=== PATIENT | male | born 1950 | race Caucasian/White ===

== ENCOUNTER 2020-12-24 11:44 | Day surgery (SDC) | payer MEDICARE, SELFPAY ==
[2020-12-04 10:42] VITALS: BMI 32.2
--- NOTE | 2020-12-21 08:17 | P.CONAN_ITS ---
Documented by User: Eveline Alexandre 12/21/20 08:18 HPI - Anesthesia Eval Consult details Narrative: 70yo M for Colonoscopy with Antibiotics [facility] Past Medical History Medical History Asthma Atrial septal defect Fatty liver HTN (hypertension) Hx of cancer of lung TIA (transient ischemic attack) Surgical History Surgical History H/O colonoscopy History of lobectomy of lung Hx of cataract extraction Hx of knee surgery Social History Social History Patient Tobacco Use Status: Former Tobacco user Quit Date: ~2009 Tobacco use type: Cigarette Advance Directives Information Provided: No Meds Allergies Allergy/AdvReac Type Severity Reaction Status Date / Time clopidogrel [From PLAVIX] Allergy Severe FLU LIKE Verified 12/24/20 13:17 SYMPTOMS,MUSCLE RIGIDITY fentanyl [FENTANYL] Allergy Severe BRONCHOSPAS Verified 12/24/20 13:17 M Home Medications Medication Instructions Recorded Confirmed Last Taken Type albuterol sulfate [Ventolin HFA] 2 puff INHALATION Q4-6H PRN 12/04/20 12/04/20 Unknown History amlodipine 10 mg PO DAILY 12/04/20 12/04/20 12/24/20 07:00 History aspirin [Aspirin Low Dose] 81 mg PO DAILY 12/04/20 12/04/20 Unknown History budesonide [Pulmicort Flexhaler] 1 inh INHALATION BID 12/04/20 12/04/20 Unknown History cetirizine [Zyrtec] 10 mg PO DAILY 12/04/20 12/04/20 Unknown History lisinopril 10 mg PO DAILY 12/04/20 12/04/20 12/24/20 07:00 History tadalafil 5 mg PO DAILY PRN 12/04/20 12/04/20 Unknown History tamsulosin 0.4 mg PO BEDTIME 12/04/20 12/04/20 Unknown History Exam Exam Date and Time: December 21, 2020 0817 Height,Weight and Vital Signs: Height 5 ft 10.5 in Weight 103.419 kg Assessment and Plan Assessment Anesthesia Assessment: Chart Reviewed Documented by User: Jacinda Oropeza 12/24/20 15:38 PMFSH Past Medical History Medical History Asthma Atrial septal defect Fatty liver HTN (hypertension) Hx of cancer of lung TIA (transient ischemic attack) Surgical History Surgical History H/O colonoscopy History of lobectomy of lung Hx of cataract extraction Hx of knee surgery Social History Social History Patient Tobacco Use Status: Former Tobacco user Quit Date: ~2009 Tobacco use type: Cigarette Advance Directives Information Provided: No Meds Allergies Allergy/AdvReac Type Severity Reaction Status Date / Time clopidogrel [From PLAVIX] Allergy Severe FLU LIKE Verified 12/24/20 13:17 SYMPTOMS,MUSCLE RIGIDITY fentanyl [FENTANYL] Allergy Severe BRONCHOSPAS Verified 12/24/20 13:17 M Home Medications Medication Instructions Recorded Confirmed Last Taken Type albuterol sulfate [Ventolin HFA] 2 puff INHALATION Q4-6H PRN 12/04/20 12/04/20 Unknown History amlodipine 10 mg PO DAILY 12/04/20 12/04/20 12/24/20 07:00 History aspirin [Aspirin Low Dose] 81 mg PO DAILY 12/04/20 12/04/20 Unknown History budesonide [Pulmicort Flexhaler] 1 inh INHALATION BID 12/04/20 12/04/20 Unknown History cetirizine [Zyrtec] 10 mg PO DAILY 12/04/20 12/04/20 Unknown History lisinopril 10 mg PO DAILY 12/04/20 12/04/20 12/24/20 07:00 History tadalafil 5 mg PO DAILY PRN 12/04/20 12/04/20 Unknown History tamsulosin 0.4 mg PO BEDTIME 12/04/20 12/04/20 Unknown History Exam Airway Mallampati Class: III TM Dist: >3cm Partial: Upper Heart: RRR Lungs: CTA Assessment and Plan Assessment Anesthesia Assessment: Anesthesia Plan Discussed and Chart Reviewed Final Anesthetic Review NPO: Yes ASA Class: III Final Preanesthetic Review: Meds/Allgs Chart Reviewed, Consent Obtained/Reviewed and Anes Risks/Benef Reviewed Patient Risk: Intermediate Procedure Risk: Low Anesthetic Plan Anesthetic Plan: MAC: Disposition: Standard PACU
[2020-12-24] MEDS: Lactated Ringers 1,000 ML 100 ML IVCONT (13:35)
[2020-12-24] MEDS: Ampicillin Sodium 2 GM in 0.9 % Sodium Chloride 100 ML IV (13:36)
[2020-12-24] MEDS: Gentamicin Sulfate/NaCl 80 MG/100 ML PIGGYBACK 100 MG IV (13:51)
--- NOTE | 2020-12-24 14:56 | ECG_ITS ---
Test Reason : RHYTHEM CHANGES Blood Pressure : / mmHG Vent. Rate : 050 BPM Atrial Rate : 050 BPM P-R Int : 340 ms QRS Dur : 186 ms QT Int : 522 ms P-R-T Axes : 024 038 036 degrees QTc Int : 475 ms Sinus bradycardia with 1st degree A-V block Left bundle branch block Abnormal ECG When compared with ECG of 13-APR-2009 21:19, Nonspecific T wave abnormality now evident in Inferior leads Referred By: Jacinda Oropeza Electronically Signed By:Asa Lopez
--- NOTE | 2020-12-24 15:00 | PC.NURSE ---
patients heart rate drops to 43 occasionally at times. denies sob, chest pain, dizziness, color wnl, nondiaphoretic. ekg to be performed called.
[2020-12-24 15:55] VITALS: BP 88/61; PULSE 62; RESP 18; TEMP 36.7; O2SAT 97
[2020-12-24 16:00] VITALS: BP 96/67; PULSE 56; RESP 16; O2SAT 95
--- NOTE | 2020-12-24 16:02 | PM.OP ---
Brief Operative Note Date of Service: 12/24/20 Pre-op diagnosis: Screening Post-op diagnosis: other (Colon polyp) Procedure: Colonoscopy to the cecum and TI with snare polypectomy and placement a of 1 Resolution clip on the polypectomy site at 40cm Surgeon: Socrates Barcenas Anesthesia: MAC Was an Robotic Welding Operator used for this Procedure?: No Estimated blood loss (mL): 0 Pathology: other (A. Polyp at 40cm) Condition: stable Disposition: PACU
[2020-12-24 16:10] VITALS: BP 108/55; PULSE 55; RESP 18; O2SAT 98
[2020-12-24 16:15] VITALS: BP 125/70; PULSE 47; RESP 18; O2SAT 99
[2020-12-24 16:30] VITALS: BP 127/67; PULSE 51; RESP 16; O2SAT 99
--- NOTE | 2020-12-24 21:12 | OP_ITS ---
SURGEON: Socrates Barcenas MD PREOPERATIVE DIAGNOSIS: POSTOPERATIVE DIAGNOSIS: PROCEDURE PERFORMED: Colonoscopy to the cecum and TI with snare polypectomy and placement of 1 resolution clip. Full consent has been obtained from for this, including risks of bleeding and perforation ESTIMATED BLOOD LOSS: COMPLICATIONS: ANESTHESIA: Monitored anesthesia care. ASSISTANTS: SPECIMENS: PREOPERATIVE DIAGNOSES: Colorectal cancer screening, family history of colon cancer, personal history of tubular adenoma of the colon. POSTOPERATIVE DIAGNOSES: Colorectal cancer screening, family history of colon cancer, personal history of tubular adenoma of the colon, colon polyp, diverticulosis and internal hemorrhoids. DESCRIPTION OF PROCEDURE: The patient was placed in the left lateral decubitus position. The digital rectal exam revealed no abnormalities. The Olympus video pediatric colonoscope was entered into the rectum and advanced easily to the cecum. Once in the cecum, I did identify normal-appearing cecal pouch with appendiceal orifice and a normal-appearing ileocecal valve. The terminal ileum was cannulated and appeared normal. The scope was withdrawn back in the colon. The entire cecum and ileocecal valve appeared normal. The scope was slowly withdrawn assessing all mucosal surfaces carefully. Preparation was excellent. The previously placed submucosal ink markings were noted in the transverse colon. I did not see any sign of residual polyp tissue in that area. At 40 cm, was a flat, but slightly raised approximately 8 mm polyp, which was snared and recovered by suction. A single resolution clip was placed as he does have to go back on his aspirin. There was good deployment and good hemostasis. There was no sign of any residual polyp. I did not visualize any other polyps, colitis, nor angiodysplasia. There was a mild amount of sigmoid diverticulosis. In the rectum, scope was retroflexed visualizing small internal hemorrhoids, but no other pathology. The rectal mucosa appeared normal. The scope was straightened out and withdrawn from the patient. He tolerated the procedure well and was returned to the recovery area in stable condition. IMPRESSION: 1. Colon polyp, status post snare polypectomy. 2. Diverticulosis. 3. Internal hemorrhoids. PLAN: The results of the pathology will be checked. I would recommend a repeat colonoscopy within 2 to 3 years for further surveillance given his family history and personal history of colon polyps. He was advised to resume his aspirin tomorrow. He did receive preprocedure antibiotics and was given a prescription for amoxicillin in regard to his underlying history of atrial septal defect. Socrates Barcenas MD RMW/JIM / [id number] MTDAntolin
== END 2020-12-24 17:17 | disposition home or self-care (01) ==
PROVIDERS: PCP Internal Medicine; Visit Provider Internal Medicine
PROC: 0DJD8ZZ Inspection of Lower Intestinal Tract, Via Natural or Artificial Opening Endoscopic (ICD-10-PCS; CPT 45378; principal; 2020-12-24 13:20)
DX: Z12.11 Encounter for screening for malignant neoplasm of colon (principal); Z86.010 Personal history of colon polyps; Z80.0 Family history of malignant neoplasm of digestive organs; K63.5 Polyp of colon; K57.30 Diverticulosis of large intestine without perforation or abscess without bleeding; K64.8 Other hemorrhoids; J45.909 Unspecified asthma, uncomplicated; I10 Essential (primary) hypertension; H54.7 Unspecified visual loss; I69.898 Other sequelae of other cerebrovascular disease; Z79.82 Long term (current) use of aspirin; Z79.899 Other long term (current) drug therapy; Z85.118 Personal history of other malignant neoplasm of bronchus and lung; Z87.891 Personal history of nicotine dependence
CPT/HCPCS: 45385; 88305; 93005; J0290; J1580

== ENCOUNTER 2023-03-16 11:41 | Day surgery (SDC) | payer MEDICARE, SELFPAY ==
--- NOTE | 2023-03-13 14:51 | HO.ANESPROP2 ---
Documented by User: Eveline Alexandre NP 03/13/23 14:52 HPI - Anesthesia Eval Consult details Narrative: 73yo M for Colonoscopy ASD s/p repair 2008 [facility] Past Medical History Medical History Hx of cancer of lung Atrial septal defect Fatty liver TIA (transient ischemic attack) Asthma HTN (hypertension) Surgical History Surgical History H/O colonoscopy Hx of knee surgery Hx of cataract extraction History of lobectomy of lung Social History Social History Patient Tobacco Use Status: Former Tobacco user Quit Date: ~2009 Tobacco use type: Cigarette Meds Allergies Allergy/AdvReac Type Severity Reaction Status Date / Time clopidogrel [From PLAVIX] Allergy Severe FLU LIKE Verified 12/24/20 13:17 SYMPTOMS,MUSCLE RIGIDITY fentanyl [FENTANYL] Allergy Severe BRONCHOSPAS Verified 12/24/20 13:17 M Home Medications Medication Instructions Recorded Confirmed Last Taken Type albuterol sulfate 90 mcg/actuation 2 puff inhalation Q4-6H PRN 12/04/20 12/04/20 Unknown History aerosol inhaler (Ventolin HFA) Wheezing amlodipine 10 mg tablet 10 mg PO DAILY 12/04/20 12/04/20 12/24/20 07:00 History aspirin 81 mg tablet,delayed 81 mg PO DAILY 12/04/20 12/04/20 Unknown History release (Jeanette Low Dose Aspirin) budesonide 180 mcg/actuation 1 inh inhalation BID 12/04/20 12/04/20 Unknown History breath activated powder inhaler (Pulmicort Flexhaler) cetirizine 10 mg tablet (Zyrtec) 10 mg PO DAILY 12/04/20 12/04/20 Unknown History lisinopril 10 mg tablet 10 mg PO DAILY 12/04/20 12/04/20 12/24/20 07:00 History tadalafil 5 mg tablet 5 mg PO DAILY PRN Erectile 12/04/20 12/04/20 Unknown History Dysfunction tamsulosin 0.4 mg capsule 0.4 mg PO BEDTIME 12/04/20 12/04/20 Unknown History atorvastatin 40 mg tablet 40 mg PO DAILY 03/13/23 03/13/23 Unknown History montelukast 10 mg tablet 10 mg PO DAILY 03/13/23 03/13/23 Unknown History Exam Exam Date and Time: March 13, 2023 1451 Assessment and Plan Assessment Anesthesia Assessment: Chart Reviewed Documented by User: Tatiana Armstrong MD 03/16/23 14:00 PMFSH Active Problems Active Problems: HTN Asthma Denies YOSEF LBBB Bradycardia Past Medical History Medical History Hx of cancer of lung Atrial septal defect Fatty liver TIA (transient ischemic attack) Asthma HTN (hypertension) Family History Family history of problems with anesthesia: No Surgical History Surgical History H/O colonoscopy Hx of knee surgery Hx of cataract extraction History of lobectomy of lung History of Problems with Anesthesia: No Social History Social History Patient Tobacco Use Status: Former Tobacco user Quit Date: ~2009 Tobacco use type: Cigarette Meds Allergies Allergy/AdvReac Type Severity Reaction Status Date / Time clopidogrel [From PLAVIX] Allergy Severe FLU LIKE Verified 12/24/20 13:17 SYMPTOMS,MUSCLE RIGIDITY fentanyl [FENTANYL] Allergy Severe BRONCHOSPAS Verified 12/24/20 13:17 M Home Medications Medication Instructions Recorded Confirmed Last Taken Type albuterol sulfate 90 mcg/actuation 2 puff inhalation Q4-6H PRN 12/04/20 12/04/20 Unknown History aerosol inhaler (Ventolin HFA) Wheezing amlodipine 10 mg tablet 10 mg PO DAILY 12/04/20 12/04/20 12/24/20 07:00 History aspirin 81 mg tablet,delayed 81 mg PO DAILY 12/04/20 12/04/20 Unknown History release (Jeanette Low Dose Aspirin) budesonide 180 mcg/actuation 1 inh inhalation BID 12/04/20 12/04/20 Unknown History breath activated powder inhaler (Pulmicort Flexhaler) cetirizine 10 mg tablet (Zyrtec) 10 mg PO DAILY 12/04/20 12/04/20 Unknown History lisinopril 10 mg tablet 10 mg PO DAILY 12/04/20 12/04/20 12/24/20 07:00 History tadalafil 5 mg tablet 5 mg PO DAILY PRN Erectile 12/04/20 12/04/20 Unknown History Dysfunction tamsulosin 0.4 mg capsule 0.4 mg PO BEDTIME 12/04/20 12/04/20 Unknown History atorvastatin 40 mg tablet 40 mg PO DAILY 03/13/23 03/13/23 Unknown History montelukast 10 mg tablet 10 mg PO DAILY 03/13/23 03/13/23 Unknown History Exam Height,Weight and Vital Signs: Height 5 ft 10 in Weight 78.925 kg Vital Signs Temp Pulse Resp BP Pulse Ox O2 Del Method 03/16/23 13:05 96.9 F 53 18 142/61 H 98 Room Air Airway Mallampati Class: III TM Dist: >3cm (Small chin) Neck ROM: Full (Ok extension but gets neck spasms) Loose/Missing/Broken Teeth: No (Permanent bridge top. Some missing teeth. Denies broken or loose teeth) Heart: RRR + murmur Lungs: CTAB Assessment and Plan Assessment Anesthesia Assessment: Anesthesia Plan Discussed Final Anesthetic Review Family History of Problems with Anesthesia: No History of Problems with Anesthesia: No NPO: Yes ASA Class: III Final Preanesthetic Review: No Changes in Pt Med Stat, Meds/Allgs Chart Reviewed, Consent Obtained/Reviewed and Anes Risks/Benef Reviewed Patient Risk: Intermediate Procedure Risk: Low Assessment/Block/Sedation in SS: Assess/Block/Sedation-SS Anesthetic Plan Anesthetic Plan: MAC: Disposition: Standard PACU
[2023-03-16] VITALS (8 sets, daily range): BP systolic 119–142; BP diastolic 51–64; PULSE 37–64; RESP 16–18; TEMP 36.1–36.6; O2SAT 98–99; BMI 25.0
--- NOTE | 2023-03-16 | ECG_ITS ---
Test Reason : bradycardia, preop Blood Pressure : / mmHG Vent. Rate : 043 BPM Atrial Rate : 043 BPM P-R Int : 260 ms QRS Dur : 182 ms QT Int : 524 ms P-R-T Axes : 025 -24 025 degrees QTc Int : 442 ms Marked sinus bradycardia with 1st degree A-V block with with sinus arrest or transient A-V block Left bundle branch block Abnormal ECG When compared with ECG of 24-DEC-2020 15:02, Sinus bradycardia with sinus arrest or transient A-V block is now Present Referred By: Tatiana Armstrong Electronically Signed By:PHILIPPE TRUJILLO
[2023-03-16] MEDS: Lactated Ringers 1,000 ML 100 ML IVCONT (13:13)
--- NOTE | 2023-03-16 15:09 | PM.OP ---
Brief Operative Note Date of Service: 03/16/23 Pre-op diagnosis: Screening Post-op diagnosis: other (Colon Polyp) Procedure: Colonoscopy to the cecum with hot snare polypectomy x 1 with placement of 2 Resolution clips Surgeon: Socrates Barcenas Anesthesia: MAC Was an Loss Prevention Operations Manager used for this Procedure?: No Estimated blood loss (mL): 2.0 Pathology: other (A. Transverse colon polyp) Condition: stable Disposition: PACU
--- NOTE | 2023-03-16 17:20 | PC.NURSE ---
anesthesia dr. angelia thomas to md cardiology consult with dr. quintero regarding patient bradycardia. dr. quintero cleared to discharge to home with follow-up PCP tomorrow. Family updated patient status.
--- NOTE | 2023-03-16 21:18 | OP_ITS ---
DATE OF SERVICE: 03/16/2023 SURGEON: Socrates Barcenas MD INDICATIONS: The patient presents for evaluation of colorectal cancer screening and personal history of tubular adenomas of the colon. Full consent has been obtained from him for this, including risks of bleeding and perforation. PREOPERATIVE DIAGNOSIS: Colorectal cancer screening and personal history of tubular adenomas of the colon. POSTOPERATIVE DIAGNOSIS: PROCEDURE PERFORMED: Colonoscopy to the cecum with hot snare polypectomy and placement of 2 resolution clips. ESTIMATED BLOOD LOSS: COMPLICATIONS: ANESTHESIA: Monitored anesthesia care. ASSISTANTS: SPECIMENS: POSTOPERATIVE DIAGNOSES: Colorectal cancer screening and personal history of tubular adenomas of the colon, colon polyp, diverticulosis, internal hemorrhoids. DESCRIPTION OF PROCEDURE: The patient was placed in the left lateral decubitus position. The digital rectal exam revealed no abnormalities. The Olympus video pediatric colonoscope was entered into the rectum and advanced easily to the cecum. Once in the cecum, I did identify normal-appearing cecal pouch with appendiceal orifice and a normal-appearing ileocecal valve. The entire cecum and ileocecal valve appeared normal. The scope was then slowly withdrawn assessing all mucosal surfaces carefully. Preparation was excellent. In the region of the transverse colon were previously placed submucosal ink parrish. In that area along a fold was an approximately 10 mm grossly adenomatous polypoid lesion. I did not visualize any other polyp tissue in that area. The polypoid lesion was removed with a hot snare polypectomy and recovered by suction. A portion of this was also cauterized with the tip of the snare. I then placed 2 resolution clips onto the polypectomy site with good deployment and good hemostasis. I did not visualize any other polyps, colitis, nor angiodysplasia. There was a mild amount of sigmoid diverticulosis. In the rectum, the scope was retroflexed visualizing internal hemorrhoids, but no other pathology. The rectal mucosa appeared normal. The scope was straightened and withdrawn from the patient. He tolerated the procedure well and was returned to the recovery area in stable condition. IMPRESSION: 1. Colon polyp. 2. Diverticulosis. 3. Internal hemorrhoids. PLAN: The results of the pathology will be checked. I would recommend a repeat colonoscopy within 2-3 years for further screening and surveillance given today's findings and his previous history. He was advised to resume his aspirin in 48 hours. MD JAYASHREE Velazquez/JIM / [id number] MTDD
== END 2023-03-16 17:39 | disposition home or self-care (01) ==
PROVIDERS: PCP Internal Medicine; Visit Provider Internal Medicine
PROC: 0DJD8ZZ Inspection of Lower Intestinal Tract, Via Natural or Artificial Opening Endoscopic (ICD-10-PCS; CPT 45378; principal; 2023-03-16 13:00)
DX: Z12.11 Encounter for screening for malignant neoplasm of colon (principal); Z86.010 Personal history of colon polyps; Z80.0 Family history of malignant neoplasm of digestive organs; D12.3 Benign neoplasm of transverse colon; K57.30 Diverticulosis of large intestine without perforation or abscess without bleeding; K64.8 Other hemorrhoids; K76.0 Fatty (change of) liver, not elsewhere classified; I10 Essential (primary) hypertension; J45.909 Unspecified asthma, uncomplicated; Z79.82 Long term (current) use of aspirin; Z79.899 Other long term (current) drug therapy; Z86.73 Personal history of transient ischemic attack (TIA), and cerebral infarction without residual deficits; Z85.118 Personal history of other malignant neoplasm of bronchus and lung; Z87.891 Personal history of nicotine dependence; Z98.890 Other specified postprocedural states; Z88.8 Allergy status to other drugs, medicaments and biological substances
CPT/HCPCS: 45385; 88305; 93005

== ENCOUNTER 2025-05-24 09:11 | Day surgery (SDC) | payer MEDICARE, SELFPAY ==
--- NOTE | 2025-05-22 10:43 | HO.ANESPROP2 ---
Documented by User: Eveline Alexandre NP 05/22/25 10:49 HPI - Anesthesia Eval Consult details Narrative: 75yo M for Colonoscopy Lung ca s/p TEX-ectomy 2019 ASD s/p repair 2008 [facility] Past Medical History Medical History LBBB (left bundle branch block) Wears partial dentures Arthritis HLD (hyperlipidemia) YOSEF on CPAP Hx of cancer of lung (09/15/19) BPH (benign prostatic hyperplasia) CAD (coronary artery disease) Atrial septal defect Fatty liver TIA (transient ischemic attack) Asthma HTN (hypertension) Family History Family history of problems with anesthesia: No Surgical History Surgical History History of tonsillectomy History of liver biopsy (2001) Hx of cardiac catheterization (2008) H/O colonoscopy (03/2023) Hx of knee surgery Hx of cataract extraction History of lobectomy of lung History of Problems with Anesthesia: No Social History Social History Are you a primary neonatal intensive care nurse to a significant other at home: No Do you presently have visiting nurse or other home services: No Patient Tobacco Use Status: Former Tobacco user Tobacco use type: Cigarette Use of substances other than those prescribed or required for medical reasons: Yes Substance Use Frequency: Occasionally Have you been hit, kicked, punched, or otherwise hurt by someone within the past year? If so, by whom?: No Are you DNR?: No Advance Directives: No (will look for and bring dos) Advance Directives Information Provided: Yes Advance Directives on File: No Meds Allergies Allergy/AdvReac Type Severity Reaction Status Date / Time bee pollen (bee stings) Allergy Severe Swelling Verified 05/22/25 11:33 clopidogrel (From PLAVIX) Allergy Severe FLU LIKE Verified 05/22/25 11:33 SYMPTOMS,MUSCLE RIGIDITY fentanyl (FENTANYL) Allergy Severe BRONCHOSPASM Verified 05/22/25 12:13 2008 Home Medications ?Medication ?Instructions ?Recorded ?Confirmed ?Last Taken ?Type albuterol sulfate 90 mcg/actuation 2 puff inhalation Q4-6H PRN 12/04/20 05/22/25 05/24/25 History aerosol inhaler (Ventolin HFA) Wheezing amlodipine 10 mg tablet 10 mg PO DAILY 12/04/20 05/22/25 05/24/25 History aspirin 81 mg tablet,delayed 81 mg PO DAILY 12/04/20 05/22/25 05/21/25 History release (Jeanette Low Dose Aspirin) budesonide 180 mcg/actuation 1 inh inhalation BID 12/04/20 05/22/25 05/24/25 History breath activated powder inhaler (Pulmicort Flexhaler) cetirizine 10 mg tablet (Zyrtec) 10 mg PO DAILY 12/04/20 05/22/25 05/24/25 History lisinopril 10 mg tablet 10 mg PO DAILY 12/04/20 05/22/25 12/24/20 07:00 History tadalafil 5 mg tablet 5 mg PO DAILY PRN Erectile 12/04/20 05/22/25 Unknown History Dysfunction tamsulosin 0.4 mg capsule 0.4 mg PO BEDTIME 12/04/20 05/22/25 Unknown History atorvastatin 40 mg tablet 40 mg PO DAILY 03/13/23 05/22/25 Unknown History montelukast 10 mg tablet 10 mg PO DAILY 03/13/23 05/22/25 Unknown History epinephrine 0.3 mg/0.3 mL PRN Allergic Reaction 05/22/25 05/22/25 Unknown History injection, auto-injector Exam Narrative Narrative: Chest CT 05/2025 IMPRESSION: 1. Low lung volume with dependent atelectasis. Otherwise no acute abnormality within the chest. 2. No evidence of recurrence or metastatic disease in the chest. 3. Unchanged 4 mm nodules in the right lower lobe. If low risk for malignancy, no routine follow-up. If high risk, optional CT at 12 months. If unchanged, no further follow-up needed per Guidelines for Management of Incidental Pulmonary Nodules Detected on CT Images: From the Fleischner Society 2017. 4. Unchanged prominent but nonenlarged prevascular mediastinal nodes. 5. Dilated main pulmonary artery, consistent with pulmonary hypertension. 6. Cardiomegaly and stable small pericardial effusion. Assessment and Plan Assessment Anesthesia Assessment: Chart Reviewed Final Anesthetic Review Family History of Problems with Anesthesia: No History of Problems with Anesthesia: No Documented by User: Dejon Sims MD 05/24/25 11:12 [facility] Past Medical History Medical History LBBB (left bundle branch block) Wears partial dentures Arthritis HLD (hyperlipidemia) YOSEF on CPAP Hx of cancer of lung (09/15/19) BPH (benign prostatic hyperplasia) CAD (coronary artery disease) Atrial septal defect Fatty liver TIA (transient ischemic attack) Asthma HTN (hypertension) Functional capacity: independent ambulation Surgical History Surgical History History of tonsillectomy History of liver biopsy (2001) Hx of cardiac catheterization (2008) H/O colonoscopy (03/2023) Hx of knee surgery Hx of cataract extraction History of lobectomy of lung Social History Social History Are you a primary neonatal intensive care nurse to a significant other at home: No Do you presently have visiting nurse or other home services: No Patient Tobacco Use Status: Former Tobacco user Tobacco use type: Cigarette Use of substances other than those prescribed or required for medical reasons: Yes Substance Use Frequency: Occasionally Have you been hit, kicked, punched, or otherwise hurt by someone within the past year? If so, by whom?: No Are you DNR?: No Advance Directives: No (will look for and bring dos) Advance Directives Information Provided: Yes Advance Directives on File: No Meds Allergies Allergy/AdvReac Type Severity Reaction Status Date / Time bee pollen (bee stings) Allergy Severe Swelling Verified 05/22/25 11:33 clopidogrel (From PLAVIX) Allergy Severe FLU LIKE Verified 05/22/25 11:33 SYMPTOMS,MUSCLE RIGIDITY fentanyl (FENTANYL) Allergy Severe BRONCHOSPASM Verified 05/22/25 12:13 2008 Home Medications ?Medication ?Instructions ?Recorded ?Confirmed ?Last Taken ?Type albuterol sulfate 90 mcg/actuation 2 puff inhalation Q4-6H PRN 12/04/20 05/22/25 05/24/25 History aerosol inhaler (Ventolin HFA) Wheezing amlodipine 10 mg tablet 10 mg PO DAILY 12/04/20 05/22/25 05/24/25 History aspirin 81 mg tablet,delayed 81 mg PO DAILY 12/04/20 05/22/25 05/21/25 History release (Jeanette Low Dose Aspirin) budesonide 180 mcg/actuation 1 inh inhalation BID 12/04/20 05/22/25 05/24/25 History breath activated powder inhaler (Pulmicort Flexhaler) cetirizine 10 mg tablet (Zyrtec) 10 mg PO DAILY 12/04/20 05/22/25 05/24/25 History lisinopril 10 mg tablet 10 mg PO DAILY 12/04/20 05/22/25 12/24/20 07:00 History tadalafil 5 mg tablet 5 mg PO DAILY PRN Erectile 12/04/20 05/22/25 Unknown History Dysfunction tamsulosin 0.4 mg capsule 0.4 mg PO BEDTIME 12/04/20 05/22/25 Unknown History atorvastatin 40 mg tablet 40 mg PO DAILY 03/13/23 05/22/25 Unknown History montelukast 10 mg tablet 10 mg PO DAILY 03/13/23 05/22/25 Unknown History epinephrine 0.3 mg/0.3 mL PRN Allergic Reaction 05/22/25 05/22/25 Unknown History injection, auto-injector Exam Exam Date and Time: 05/24/25 Airway Mallampati Class: II TM Dist: >3cm Heart: normal Lungs: normal Other: normal Assessment and Plan Assessment Anesthesia Assessment: Anesthesia Plan Discussed Final Anesthetic Review NPO: Yes ASA Class: III Final Preanesthetic Review: No Changes in Pt Med Stat, Meds/Allgs Chart Reviewed and Consent Obtained/Reviewed Patient Risk: Intermediate Procedure Risk: Low Anesthetic Plan Anesthetic Plan: MAC: Disposition: Standard PACU
[2025-05-22 12:23] VITALS: BMI 28.6
[2025-05-24 09:25] VITALS: BMI 28.9
[2025-05-24 09:38] VITALS: BP 138/76; PULSE 70; RESP 16; TEMP 36.4; O2SAT 98
[2025-05-24] MEDS: Lactated Ringers 1,000 ML 100 ML IVCONT (09:45)
[2025-05-24 12:50] VITALS: BP 98/55; PULSE 55; RESP 14; TEMP 36.3; O2SAT 92
--- NOTE | 2025-05-24 12:50 | P.BOP_ITS ---
Brief Operative Note Date of Service: 05/24/25 Pre-op diagnosis: Screening Post-op diagnosis: other (Cecal polyp) Procedure: Colonoscopy to the cecum with biopsies Surgeon: Socrates Barcenas MD Anesthesia: MAC Was an Recreation Activities Coordinator used for this Procedure?: No Estimated blood loss (mL): 2.0 Pathology: other (A. Cecal polyp) Condition: stable Disposition: PACU
[2025-05-24 13:05] VITALS: BP 118/77; PULSE 48; RESP 14; TEMP 36.3; O2SAT 96
--- NOTE | 2025-05-25 02:08 | OP_ITS ---
DATE OF SERVICE: 05/24/2025 SURGEON: Socrates Barcenas MD INDICATIONS: The patient presents for followup of colorectal cancer screening and personal history of colon polyps. Full consent has been obtained from him for this, including risks of bleeding and perforation. PREOPERATIVE DIAGNOSIS: POSTOPERATIVE DIAGNOSIS: PROCEDURE PERFORMED: Colonoscopy to the cecum with biopsies. ESTIMATED BLOOD LOSS: COMPLICATIONS: ANESTHESIA: Monitored anesthesia care. ASSISTANTS: SPECIMENS: PREOPERATIVE DIAGNOSES: Colorectal cancer screening and personal history of colon polyps. POSTOPERATIVE DIAGNOSES: Colorectal cancer screening and personal history of colon polyps, colon polyp, diverticulosis, and internal hemorrhoids. DESCRIPTION OF PROCEDURE: The patient was placed in the left lateral decubitus position. The digital rectal exam revealed no abnormalities. The Olympus video pediatric colonoscope was entered into the rectum and advanced easily to the cecum. Once in the cecum, I did identify cecal pouch with appendiceal orifice and a normal-appearing ileocecal valve. The entire cecum was well visualized. In the cecum, tucked just behind the ileocecal valve, was some grossly adenomatous tissue. This was polypoid in appearance and measured approximately 2 cm. It was flat, but somewhat raised. However, it was in a difficult location to get a consistent good look at given its location behind the valve. I initially tried to snare it, but could not maintain good position nor good visualization of the polyp and therefore it was not snared. I did obtain 2 biopsies from the polyp, but again this was difficult also due to its location and difficulty in maintaining good visualization. The 2 biopsies obtained I felt were from the polyp itself, but I could not be 100% sure about that. A good amount of time was spent in the cecum, trying to initially remove it and then biopsying it. Once the biopsies were obtained, I then slowly withdrew the scope through the colon. For the most part, preparation was very good throughout the colon, but there were some areas of some liquid stool, which had to be irrigated and suctioned away as best as possible. In the transverse colon, I visualized previously placed submucosal ink parrish, but did not visualize any sign of residual polyp tissue. There was a [id number] amount of sigmoid diverticulosis. In the rectum, the scope was retroflexed, visualizing internal hemorrhoids, but no other pathology. The rectal mucosa appeared normal. The scope was straightened and withdrawn from the patient. He tolerated the procedure well and was returned to the recovery area in stable condition. IMPRESSION: 1. Cecal polyp, status post biopsy. 2. Diverticulosis. 3. No evidence of residual polyp tissue at the site of the previously placed submucosal ink parrish in the transverse colon. 4. Internal hemorrhoids. PLAN: The results of the biopsies will be checked. I advised the patient and his of this finding and the need for a repeat colonoscopy to attempt removal of what I feel is a cecal adenomatous polyp. I advised him that even if my biopsies do not show adenomatous tissue, I would still recommend a repeat colonoscopy. Given my difficulty in trying to remove it today, I will plan to refer him to a tertiary center for further attempts at removal. This has been discussed with the patient and his . He was advised to resume his aspirin in 48 hours. MD JAYASHREE Velazquez/JIM / [id number] MTDD
== END 2025-05-24 13:56 | disposition home or self-care (01) ==
PROVIDERS: PCP Internal Medicine; Visit Provider Internal Medicine
PROC: 0DJD8ZZ Inspection of Lower Intestinal Tract, Via Natural or Artificial Opening Endoscopic (ICD-10-PCS; CPT 45378; principal; 2025-05-24 10:40)
DX: Z12.11 Encounter for screening for malignant neoplasm of colon (principal); Z86.0101 Personal history of adenomatous and serrated colon polyps; Z80.0 Family history of malignant neoplasm of digestive organs; K64.8 Other hemorrhoids; K57.30 Diverticulosis of large intestine without perforation or abscess without bleeding; D12.0 Benign neoplasm of cecum
CPT/HCPCS: 45380; 88305; J2003; J2704